=== PATIENT | male | born 1995 | race African-American/Black ===

== ENCOUNTER 2019-09-11 01:24 | Emergency (ER) | payer OTHER ==
[~2019-09-11] VITALS: Ht 182.9 cm; Wt 72.6 kg
[~2019-09-11 01:24] MED LIST: NOHOMEMEDICATIONS; PHENERGAN 25 MG25 M1 PO; ZOFRAN ODT4 MG PO
[2019-09-11 01:26] VITALS: BP 135/70
[2019-09-11] MEDS ORDERED: PENICILLIN V P500 MG PO (01:46)
== END 2019-09-11 01:55 | disposition home or self-care (01) ==
LOC: ER 01:24
DX: K04.7 Periapical abscess without sinus (principal)